=== PATIENT | male | born 1960 | race Caucasian/White ===

== ENCOUNTER → 2016-09-10 | Outpatient (CLI) | payer OTHER | LOC: CIMAGING 16:55 | PROVIDERS: ATTEND Family Medicine | DX: R10.31 Right lower quadrant pain (principal); R11.10 Vomiting, unspecified; R93.3 Abnormal findings on diagnostic imaging of other parts of digestive tract; R91.1 Solitary pulmonary nodule | CPT/HCPCS: 74022-PO ==